=== PATIENT | male | born 1975 | race African-American/Black ===

== ENCOUNTER 2020-08-09 18:48 | Emergency (ER) | payer SELFPAY ==
--- NOTE | 2020-08-09 19:24 | EDM.PDOC ---
ED HPI GENERAL MEDICAL PROBLEM - General Chief Complaint: Abdominal Pain Stated Complaint: SICK Time Seen by Provider: 08/09/20 18:58 - History of Present Illness INITIAL COMMENTS - FREE TEXT/NARRATIVE: The patient says that he wants to use his friend's crown and bridge technician and a crown and bridge technician is fluent in [place] and [place]. Patient's [place] language is Vietnamese. The patient reports he has right upper quadrant pain. The patient has a severe sharp pain in the right upper quadrant for 2 weeks. He vomited at the onset. He has no appetite and feels weak and lightheaded since. The pain got a lot worse today. Its severe and episodic with one severe episode starting today. The patient has no fever chills or cough. He has no known exposure to COVID-19. The patient enjoys good health and takes no medicine. He does not smoke and he does not drink. He has had no surgery. No prior issue with his liver or gallbladder Abdominal Pain Score (Numeric/FACES): 7 - Related Data Allergies Allergy/AdvReac Type Severity Reaction Status Date / Time No Known Allergies Allergy Verified 08/09/20 19:05 Home Meds: Home Meds Acetaminophen/HYDROcodone [[place] 325-7.5 MG] 1 tab PO Q4H PRN #14 tab 08/09/20 [Rx] Past Medical History - Past Health History Medical/Surgical History: Denies Medical/Surgical History - Infectious Disease History Infectious Disease History: Reports: None Social & Family History - Tobacco Use Tobacco Use Status *Q: Never Tobacco User - Caffeine Use Caffeine Use: Reports: None - Recreational Drug Use Recreational Drug Use: No ED ROS GENERAL - Review of Systems Review Of Systems: Comprehensive ROS is negative, except as noted in HPI. ED EXAM, GENERAL - Physical Exam Exam: See Below Free Text/Narrative:: My physical exam is in the HPI Course - Vital Signs Text/Narrative:: 2034. The x-ray showed an elevated right hemidiaphragm in an isolated area that raised the issue of possible eventration or rent in the diaphragm. The patient denies any trauma. Patient also has elevated liver enzymes and hepatitis profile was ordered. The ultrasound is pending. Within the department. With a crown and bridge technician went instructed him to get some further testing and follow-up with the clinic. He has to make appointment at the clinic and will call him for the testing. Prescription sent in the pharmacy at his request. Last Recorded V/S: Last Vital Signs Temp 37.0 C 08/09/20 21:56 Pulse 98 08/09/20 21:56 Resp 17 08/09/20 21:56 BP 143/83 H 08/09/20 21:56 Pulse Ox 96 08/09/20 21:56 - Orders/Labs/Meds Orders: Active Orders 24 hr Category Date Time Status HEPATITIS PANEL (4) [REF] Stat Lab 08/09/20 21:09 Received Sodium Chloride 0.9% [Normal Saline] 1,000 ml Med 08/09/20 19:30 Active IV ASDIRECTED Sodium Chloride 0.9% [Saline Flush] Med 08/09/20 19:21 Active 10 ml FLUSH ASDIRECTED PRN Sodium Chloride 0.9% [Saline Flush] Med 08/09/20 19:21 Active 2.5 ml FLUSH ASDIRECTED PRN Saline Lock Insert [OM.PC] Stat Oth 08/09/20 19:21 Ordered Medication Orders Sodium Chloride (Normal Saline) 1,000 mls @ 100 mls/hr IV ASDIRECTED ROBERT Last Admin: 08/09/20 19:32 Dose: 100 mls/hr Documented by: KLEIJOC Sodium Chloride (Saline Flush) 10 ml FLUSH ASDIRECTED PRN PRN Reason: Keep Vein Open Last Admin: 08/09/20 19:29 Dose: 10 ml Documented by: KLEIJOC Sodium Chloride (Saline Flush) 2.5 ml FLUSH ASDIRECTED PRN PRN Reason: Keep Vein Open Last Admin: 08/09/20 19:29 Dose: 2.5 ml Documented by: HAILEY Labs: Laboratory Tests 08/09/20 08/09/20 08/09/20 Range/Units 19:35 19:35 19:42 WBC 3.70 L (4.0-11.0) K/uL RBC 4.41 L (4.50-5.90) M/uL Hgb 14.0 (13.0-17.0) g/dL Hct 40.7 (38.0-50.0) % MCV 92.3 (80.0-98.0) fL MCH 31.7 (27.0-32.0) pg MCHC 34.4 (31.0-37.0) g/dL RDW Std Deviation 41.7 (28.0-62.0) fl RDW Coeff of Alva 12 (11.0-15.0) % Plt Count 119 L (150-400) K/uL MPV 11.50 (7.40-12.00) fL Neut % (Auto) 56.2 (48.0-80.0) % Lymph % (Auto) 27.0 (16.0-40.0) % Dixie % (Auto) 13.0 (0.0-15.0) % Eos % (Auto) 3.5 (0.0-7.0) % Baso % (Auto) 0.3 (0.0-1.5) % Neut # (Auto) 2.1 (1.4-5.7) K/uL Lymph # (Auto) 1.0 (0.6-2.4) K/uL Dixie # (Auto) 0.5 (0.0-0.8) K/uL Eos # (Auto) 0.1 (0.0-0.7) K/uL Baso # (Auto) 0.0 (0.0-0.1) K/uL Nucleated RBC % 0.0 /100WBC Nucleated RBCs # 0 K/uL Sodium 134 L (136-148) mmol/L Potassium 3.6 (3.5-5.1) mmol/L Chloride 98 (98-107) mmol/L Carbon Dioxide 25.7 (21.0-32.0) mmol/L BUN 10 (7.0-18.0) mg/dL Creatinine 1.0 (0.8-1.3) mg/dL Est Cr Clr Drug Dosing TNP Estimated GFR (MDRD) > 60.0 ml/min Glucose 149 H (74-106) mg/dL Calcium 9.2 (8.5-10.1) mg/dL Total Bilirubin 0.6 (0.2-1.0) mg/dL AST 356 H (15-37) IU/L ALT 259 H (14-63) IU/L Alkaline Phosphatase 149 H (46-116) U/L Total Protein 8.8 H (6.4-8.2) g/dL Albumin 2.6 L (3.4-5.0) g/dL Globulin 6.2 H (2.6-4.0) g/dL Albumin/Globulin Ratio 0.4 L (0.9-1.6) Lipase 142 (73-393) U/L Urine Color YELLOW Urine Appearance CLEAR Urine pH 6.5 (5.0-8.0) Ur Specific Cando 1.015 (1.001-1.035) Urine Protein NEGATIVE (NEGATIVE) mg/dL Urine Glucose (UA) NEGATIVE (NEGATIVE) mg/dL Urine Ketones NEGATIVE (NEGATIVE) mg/dL Urine Occult Blood NEGATIVE (NEGATIVE) Urine Nitrite NEGATIVE (NEGATIVE) Urine Bilirubin NEGATIVE (NEGATIVE) Urine Urobilinogen 1.0 (<2.0) EU/dL Ur Leukocyte Esterase NEGATIVE (NEGATIVE) Meds: Medications Generic Name Dose Route Start Last Admin Trade Name Freq PRN Reason Stop Dose Admin Sodium Chloride 1,000 mls @ 100 mls/hr 08/09/20 19:30 08/09/20 19:32 Normal Saline IV 100 mls/hr ASDIRECTED ROBERT Administration Sodium Chloride 10 ml 08/09/20 19:21 08/09/20 19:29 Saline Flush FLUSH 10 ml ASDIRECTED PRN Administration Keep Vein Open Sodium Chloride 2.5 ml 08/09/20 19:21 08/09/20 19:29 Saline Flush FLUSH 2.5 ml ASDIRECTED PRN Administration Keep Vein Open Discontinued Medications Generic Name Dose Route Start Last Admin Trade Name Freq PRN Reason Stop Dose Admin Pantoprazole Sodium 40 mg/ 10 mls @ 300 mls/hr 08/09/20 19:21 08/09/20 19:29 Sodium Chloride IV 08/09/20 19:22 300 mls/hr NOW ONE Administration Ondansetron HCl 4 mg 08/09/20 19:21 08/09/20 19:29 Zofran IVPUSH 08/09/20 19:22 4 mg ONETIME ONE Administration Departure - Departure Time of Disposition: 21:58 Disposition: Home, Self-Care 01 Condition: Good Clinical Impression: Liver mass, Gallstones, LFT elevation - Discharge Information Prescriptions: Acetaminophen/HYDROcodone [[place] 325-7.5 MG] 1 tab PO Q4H PRN #14 tab PRN Reason: Pain (Moderate 4-6) Instructions: Cholelithiasis, Hepatomegaly, [id number] Referrals: PCP,None [Primary Care Provider] - Forms: ED Department Discharge Additional Instructions: You need a hepatic MRI and a HIDA scan. The hospital call and try to arrange these. You should make an appointment with the clinic so that you can have that appointment once these results are back and they can advise you further. There is something wrong with your liver and we are not sure exactly the extent of it or the treatment needed until we have the other tests. If fever or severe pain and vomiting again you may return. [facility] - Internal Medicine [facility] [place] [id number] The following information is given to patients seen in the emergency department who are being discharged to home. This information is to outline your options for follow-up care. We provide all patients seen in our emergency department with a follow-up referral. The need for follow-up, as well as the timing and circumstances, are variable depending upon the specifics of your emergency department visit. If you don't have a primary care physician on staff, we will provide you with a referral. We always advise you to contact your personal physician following an emergency department visit to inform them of the circumstance of the visit and for follow-up with them and/or the need for any referrals to a consulting specialist. The emergency department will also refer you to a specialist when appropriate. This referral assures that you have the opportunity for follow-up care with a specialist. All of these measure are taken in an effort to provide you with optimal care, which includes your follow-up. Under all circumstances we always encourage you to contact your private physician who remains a resource for coordinating your care. When calling for follow-up care, please make the office aware that this follow-up is from your recent emergency room visit. If for any reason you are refused follow-up, please contact the [facility] at and asked to speak to the emergency department charge nurse. Sepsis Event Note (ED) - Evaluation Sepsis Screening Result: No Definite Risk - Focused Exam Vital Signs: Vital Signs Temp Pulse Resp BP Pulse Ox 08/09/20 21:56 37.0 C 98 17 143/83 H 96 08/09/20 21:05 96 18 152/80 H 98 08/09/20 19:05 37.0 C 104 H 17 158/97 H 98 - My Orders Last 24 Hours: My Active Orders 08/09/20 19:21 Sodium Chloride 0.9% [Saline Flush] 10 ml FLUSH ASDIRECTED PRN Sodium Chloride 0.9% [Saline Flush] 2.5 ml FLUSH ASDIRECTED PRN Saline Lock Insert [OM.PC] Stat 08/09/20 19:30 Sodium Chloride 0.9% [Normal Saline] 1,000 ml IV ASDIRECTED 08/09/20 21:09 HEPATITIS PANEL (4) [REF] Stat - Assessment/Plan Last 24 Hours: My Active Orders 08/09/20 19:21 Sodium Chloride 0.9% [Saline Flush] 10 ml FLUSH ASDIRECTED PRN Sodium Chloride 0.9% [Saline Flush] 2.5 ml FLUSH ASDIRECTED PRN Saline Lock Insert [OM.PC] Stat 08/09/20 19:30 Sodium Chloride 0.9% [Normal Saline] 1,000 ml IV ASDIRECTED 08/09/20 21:09 HEPATITIS PANEL (4) [REF] Stat
[2020-08-09] MEDS: Sodium Chloride 0.9% 10 ML Syringe FLUSH PRN (19:29)
[2020-08-09] MEDS: Ondansetron 4 MG/2 ML SDV IVPUSH ONE (19:29)
[2020-08-09] MEDS: Pantoprazole 40 MG in Sodium Chloride 0.9% 10 ML IV ONE (19:29)
[2020-08-09] MEDS: Sodium Chloride 0.9% 2.5 ML Syringe FLUSH PRN (19:29)
[2020-08-09] MEDS: Sodium Chloride 0.9% 1,000 ML IV SCH (19:32)
--- NOTE | 2020-08-09 19:53 | CR ---
INDICATION: Right-sided pain COMPARISON: None TECHNIQUE: PA and lateral views of the chest were acquired FINDINGS: TUBES AND LINES: None. HEART AND MEDIASTINUM: The heart size is normal. The mediastinal contour appears normal for patient age. LUNGS AND PLEURAL SPACES: The lungs appear normal.The pleural spaces are unremarkable. OSSEOUS STRUCTURES: Age-appropriate appearance. No acute focal finding. HEMIDIAPHRAGM: Unusual peak shaped elevation of the right hemidiaphragm. The etiology of this is uncertain. This is probably due to an eventration or perhaps a ariela herniation. In the absence of additional findings such as in this case, this appearance is unlikely to be acute. However, if this requires further imaging, a CT should be considered. IMPRESSION: Abnormal appearing right diaphragm as above Dictated by Kendall Guerrero MD @ Aug 09 2020 7:48PM Signed by Dr. Kendall Guerrero @ Aug 09 2020 7:51PM
[2020-08-09 20:09] LABS: BLOOD UREA NITROGEN,BUN 10 mg/dL (7.0-18.0); CARBON DIOXIDE,CO2 25.7 mmol/L (21.0-32.0); CHLORIDE,CL 98 mmol/L (98-107); GLUCOSE RANDOM 149 mg/dL (74-106); LIPASE 142 U/L (73-393); POTASSIUM,K 3.6 mmol/L (3.5-5.1); SODIUM,NA 134 mmol/L (136-148)
--- NOTE | 2020-08-09 21:37 | US ---
INDICATION: Right upper quadrant pain TECHNIQUE: Ultrasound abdomen limited. Sonographic images of the right upper quadrant were obtained using bryant-scale and color Doppler images. COMPARISON: None FINDINGS: Liver: Normal in size. Heterogeneous echotexture. There are two nonvascular masses in the liver. The 1st is located adjacent to the diaphragm measures 2.3 cm in diameter. The 2nd is in the caudal aspect of the liver and measures 1.8 cm. No intrahepatic biliary dilatation. Gallbladder: Cholelithiasis. Normal wall thickness. No pericholecystic fluid. Sonographic Pearson sign is positive. Common bile duct: 4 mm. Pancreas: Normal. Right kidney: 9.9 cm in length. Normal echotexture and cortex. No masses, stones, or hydronephrosis. IMPRESSION: Cholelithiasis with positive sonographic Pearson sign. Normal gallbladder wall thickness. Two indeterminate hepatic lesions. Recommend nonemergent hepatic MRI for further evaluation. Dictated by Tamera Dawn MD @ Aug 09 2020 9:23PM Signed by Dr. Tamera Dawn @ Aug 09 2020 9:35PM
== END 2020-08-09 22:01 | disposition home or self-care (01) ==
LOC: MW.ED 18:48
DX: K80.20 Calculus of gallbladder without cholecystitis without obstruction (principal); R16.0 Hepatomegaly, not elsewhere classified; R79.89 Other specified abnormal findings of blood chemistry
CPT/HCPCS: 36415; 71045; 76705; 80053; 80074; 81003; 83690; 85025; 96374; 96375; 99284; C9113; J2405; J7030; 99283